=== PATIENT | male | born 1975 | race Caucasian/White ===

== ENCOUNTER 2016-06-08 15:45 | Emergency (ER) | payer SELFPAY ==
[~2016-06-08] VITALS: Ht 170.2 cm; Wt 72.5 kg
[~2016-06-08 15:45] MED LIST: IBUP600T26 PO; METH750T2 PO; RANI150 PO
[2016-06-08 15:47] VITALS: BP 133/85; PULSE 91; RESP 15; TEMP 98; O2SAT 98
--- NOTE | 2016-06-08 15:52 | PD ---
Physical Exam Time Seen by Provider: 15:52 Narrative 41 y/o male with R hand laceration. Vital signs reviewed. Seen at triage desk. awaiting bed placement. Data Data Last Documented VS Vital Signs Date Time Temp Pulse Resp B/P Pulse Ox O2 Delivery O2 Flow Rate FiO2 06/08/16 15:47 98.0 91 15 133/85 98 MDM Medical Record Reviewed: Yes Supervised Visit with EDMOND: No Marcus Francisco June 08, 2016 15:52
[2016-06-08] MEDS ORDERED: LIDOCAINE 1%/EPINEPHrine 1:100,000 SOLN 20 ML VIAL INFIL ONE (17:00)
[2016-06-08] MEDS ORDERED: ACETAMINOPHEN 325 MG TAB PO ONE (17:00)
[2016-06-08] MEDS ORDERED: IBUP800T23 PO (17:07)
[2016-06-08] MEDS ORDERED: CEPH-460 PO (17:07)
--- NOTE | 2016-06-08 17:09 | PD ---
HPI Chief Complaint: Laceration/Skin Injury Time Seen by Provider: 16:57 Travel History International Travel<30 days: No Contact w/Intl Traveler<30days: No Traveled to known affect area: No History of Present Illness HPI 41-year-old male presents to the emergency Department with complaint of a laceration in between his first and second digits to the right hand. He was cleaning an oven and the oven door sprung back and hit his hand causing a laceration. Reports being up-to-date on his tetanus vaccination. Reports numbness and tingling to the lateral aspect of the second digit; denies loss of sensation. Denies loss of sensation to all fingers. Reports full range of motion of all fingers. Denies fever, vomiting. No known allergies. Has not taken any medications or tried any treatments of symptoms. Has no other medical complaints. No other modifying factors or associated signs and symptoms. PFSH Past Medical History Hx Anticoagulant Therapy: No Asthma: Yes Cardiovascular Problems: No Chemotherapy: No Cerebrovascular Accident: No Diabetes: No Diminished Hearing: No GERD: Yes (MILD) Respiratory: Yes (Asthma) Integumentary: Yes (MRSA INFECTION X10 YRS AGO) Immunizations Current: Yes Tetanus Vaccination: < 5 Years Influenza Vaccination: Yes Past Surgical History Appendectomy: Yes Social History Alcohol Use: No Tobacco Use: No (NEVER) Substance Use: No Allergies-Medications (Allergen,Severity, Reaction): Coded Allergies: No Known Allergies (Verified , 06/08/16) Reported Meds & Prescriptions Reported Meds & Active Scripts Active Ibuprofen 800 Mg Tab 800 Mg PO Q6HR PRN Keflex (Cephalexin) 500 Mg Cap 500 Mg PO Q8H 7 Days Methocarbamol 750 Mg Tab 750 Mg PO Q6HR Ibuprofen 600 Mg Tab 600 Mg PO Q8H PRN Reported Zantac 150 Mg Tab (Ranitidine HCl) 150 Mg Tab 150 Mg PO DIRECTED Review of Systems Except as stated in HPI: all other systems reviewed are Neg Physical Exam Narrative GENERAL: Well-nourished, well-developed male patient, in no acute distress SKIN: Warm and dry. Approximately 2 cm laceration in between the first and second fingers of the right hand at the base of the thumb; first and second fingers with full range of motion and sensory intact; less than 3 second cap refill; good opposition to the thumb and second finger. Things are without erythema, edema. HEAD: Atraumatic. Normocephalic. EYES: Pupils equal and round. No scleral icterus. No injection or drainage. ENT: Mucosa pink and moist. Airway patent. NECK: Trachea midline. CARDIOVASCULAR: Regular rate. RESPIRATORY: No accessory muscle use. GASTROINTESTINAL: Flat. MUSCULOSKELETAL: No obvious deformities. No clubbing. No cyanosis. No edema. NEUROLOGICAL: Awake and alert. Oriented 3. No obvious cranial nerve deficits. Motor grossly within normal limits. Normal speech. PSYCHIATRIC: Appropriate mood and affect; insight and judgment normal. Data Data Last Documented VS Vital Signs Date Time Temp Pulse Resp B/P Pulse Ox O2 Delivery O2 Flow Rate FiO2 06/08/16 15:47 98.0 91 15 133/85 98 Orders Hand, Complete ([id number]) (06/08/16 16:52) Acetaminophen (Tylenol) (06/08/16 17:00) Lidocai-Epi 1%-1:100,000 Inj (Xylocaine- (06/08/16 17:00) MDM Medical Decision Making Medical Screen Exam Complete: Yes Emergency Medical Condition: Yes Medical Record Reviewed: Yes Differential Diagnosis Finger laceration, hand laceration, fracture Narrative Course 41-year-old male with laceration in between his first and second fingers of the right hand at the base of the thumb. Hand x-ray ordered to rule out fracture. Patient up-to-date on his tetanus vaccination. See my procedure note for laceration repair. Wound care provided and Jose bandage applied for support. Keflex and ibuprofen prescribed for home. Instructed patient to return to the emergency department in 7-10 days for suture removal. Patient verbalizes understanding and agreement with treatment plan. Patient is medically cleared and stable for discharge. Discussed reasons to return to the emergency department. Instructed patient to follow up with primary care provider. Patient agrees with treatment plan. The patients vital signs are stable and the patient is stable for outpatient follow-up and treatment. Patient discharged home, stable and in no acute distress. Procedures Procedure Narrative LACERATION LOCATION: Between first and second fingers of the right hand at the base of the thumb LENGTH: 2 cm NUMBER OF STITCHES/SALINA: 4 simple interrupted sutures REPAIR: The area of the laceration was prepped with Betadine and sterilely draped. The laceration was infiltrated with 1% lidocaine. The wound was copiously irrigated and explored without evidence of foreign body, tendon injury or neurovascular injury. The wound was closed using 6-0 Prolene. This was a single layer repair. A sterile dressing was applied. The patient was advised to keep the dressing clean and dry. Patient tolerated the procedure well. Diagnosis Primary Impression: Laceration of right hand Qualified Code: S61.411A - Laceration of right hand without foreign body, initial encounter Referrals: Primary Care Physician Patient Instructions: General Instructions, Laceration (ED), Stitches Removal ( ED) Departure Forms: Tests/Procedures, Work Release Enter return to work date: June 10, 2016 Additional Instructions: Keep area clean and dry Limit right hand activity to decrease risk of sutures coming undone Ibuprofen every 6 hours as directed and as needed for pain Ice pack to area as needed to decrease pain Return to the emergency department in 7-10 days for suture removal Follow up with primary care provider within 2-4 days Return to the emergency department immediately with worsening of symptoms, particularly if reddened streaks up or down the affected extremity from the suture site, fever, numbness/tingling in the affected extremity, loss of sensation in the affected extremity, severe swelling of the affected Med/Other Pt SpecificInfo: Prescription(s) given Scripts Ibuprofen 800 Mg [id number] Mg PO Q6HR PRN (PAIN) #30 TAB Ref 0 Prov:Evelin Hill 06/08/16 Cephalexin (Keflex)500 Mg [id number] Mg PO Q8H 7 Days Ref 0 Prov:Evelin Hill 06/08/16 Disposition: 01 DISCHARGE HOME Condition: Stable Evelin Hill June 08, 2016 17:08
--- NOTE | 2016-06-08 17:17 | RADRPT ---
EXAM DATE/TIME: 06/08/2016 17:12 [facility] COMPARISON: No previous studies available for comparison. INDICATIONS : Laceration to proximal region of 1st digit from oven. MEDICAL HISTORY : None. SURGICAL HISTORY : None. ENCOUNTER: Initial ACUITY: 1 day PAIN SCORE: 10/10 LOCATION: Right hand FINDINGS: Three view examination of the right hand demonstrates no soft tissue swelling, dislocation, or fractu re. Old trauma to the fifth proximal phalanx. The carpal bones appear intact. The interphalangeal and metacarpophalangeal joints are intact. Bony mineralization is normal. No radiopaque foreign body observed. CONCLUSION: 1. No acute abnormality. 2. Old trauma to the fifth proximal phalanx. Lazaro Pacheco Jr., MD on June 08, 2016 at 17:14 Board Certified Radiologist. This report was verified electronically.
== END 2016-06-08 18:12 | disposition home or self-care (01) ==
LOC: NEPK 15:45
DX: S61.411A Laceration without foreign body of right hand, initial encounter (principal); R20.0 Anesthesia of skin; R20.2 Paresthesia of skin; Z87.09 Personal history of other diseases of the respiratory system; Z87.19 Personal history of other diseases of the digestive system; Z86.14 Personal history of Methicillin resistant Staphylococcus aureus infection; W22.8XXA Striking against or struck by other objects, initial encounter; Y93.G1 Activity, food preparation and clean up
CPT/HCPCS: 12001; 73130